=== PATIENT | female | born 1995 | race Caucasian/White ===

== ENCOUNTER → 2016-09-25 | Outpatient (CLI) | payer BC ==
--- NOTE | 2016-09-25 08:57 | NM ---
EXAMINATION TYPE: NM hepatobiliary w EF DATE OF EXAM: 09/25/2016 8:47 AM COMPARISON: NONE HISTORY: Right upper quadrant pain TECHNIQUE: After the intravenous administration of 5.3 mCi Tc 99m Mebrofenin hepatobiliary scintigrap hy is performed. Immediate images post injection. FINDINGS: There is satisfactory initial accumulation of tracer by the liver. The gallbladder is visualized wit hin 10 minutes. The small bowel activity is noted within 40 minutes. At one hour 8 ounces of oral e nsure plus is given to mimic CCK and gallbladder ejection fraction is calculated at 66 %, in the norm al range. Therefore there is no scintigraphic evidence of cystic or common bile duct obstruction to suggest acute cholecystitis or gallbladder dyskinesia. IMPRESSION: Exam is within normal limits.
== END | disposition home or self-care (01) ==
LOC: RADNMMAIN 06:50
PROVIDERS: ATTEND Surgery
DX: K82.8 Other specified diseases of gallbladder (principal)
CPT/HCPCS: 78226; A9537

== ENCOUNTER → 2016-10-07 | Outpatient (CLI) | payer BC ==
--- NOTE | 2016-10-07 15:01 | CT ---
EXAMINATION TYPE: CT abdomen pelvis w con DATE OF EXAM: 10/07/2016 2:38 PM COMPARISON: 06/19/2012 HISTORY: RUQ pain, nausea CT DLP: 357.0 mGycm CONTRAST: CT scan of the abdomen and pelvis is performed with Oral Contrast and with IV Contrast, patient injec dieter with 100 mL of Omnipaque 300. FINDINGS: LUNG BASES-: No visible nodule. No infiltrate. LIVER/GB: No calcified gallstones. No space occupying hepatic lesion. Biliary tree is of normal ca liber. PANCREAS: No inflammation. No distinct mass. SPLEEN: No splenic enlargement. No lesion seen. ADRENALS: No nodule. No thickening. KIDNEYS/BLADDER: No hydronephrosis. Nonobstructing 3 mm calculus mid to upper pole right kidney. No additional renal calculi seen at this time. No disctinct renal mass. Urinary bladder grossly unremark able. BOWEL: Normal appendix. Normal bowel caliber. No inflammation. GENITAL ORGANS: The uterus is unremarkable. Right ovarian cyst measuring 2.1 cm. Left ovary is withi n normal limits. No free fluid identified. LYMPH NODES: No greater than 1cm abdominal or pelvic lymph nodes are appreciated. AORTA: No significant abnormality. OSSEOUS STRUCTURES: No significant abnormality is seen. OTHER: No significant additional abnormality is seen. IMPRESSION: 1. Right ovarian cystic lesion. 2. Nonobstructing right renal calculus.
== END | disposition home or self-care (01) ==
LOC: RADCTMAIN 14:11
PROVIDERS: ATTEND Surgery
DX: N20.0 Calculus of kidney (principal); N83.201 Unspecified ovarian cyst, right side
CPT/HCPCS: 74177; Q9967

== ENCOUNTER 2016-10-23 06:46 | Day surgery (SDC) | payer BC ==
[2016-10-18 13:37] VITALS: BMI 18.3
[~2016-10-23 06:46] MED LIST: LACTATED RINGERS 1,000 ML IV SCH
[2016-10-23 07:19] VITALS: TEMP 97
[2016-10-23] MEDS ORDERED: LIDOCAINE 1% INJ 10MG/ML (20 ML MDV) ONE (07:33)
[2016-10-23] MEDS ORDERED: PROPOFOL 10 MG/ML 20 ML VIAL IV ONE (07:33)
--- NOTE | 2016-10-23 08:12 | P.OP ---
Date of Procedure: 10/23/16 Preoperative Diagnosis: weight loss, diarrhea, abdominal pain Postoperative Diagnosis: Large paraesophageal ulcer with esophagitis, mild gastritis and duodentitis Grossly normal colon Procedure(s) Performed: EGD with biopsy using cold biopsy forceps Colonoscopy with biopsy using cold biopsy forceps Anesthesia: CHAPARRITA Surgeon: Frantz Llanes Pathology: other Condition: stable Disposition: PACU Description of Procedure: PROCEDURE DETAILS: A timeout was performed to verify the correct patient and correct procedure. Patient was on continuous vitals and pulse ox monitoring throughout the procedure. She was placed in lateral decubitus position and a bite block was inserted. A well-lubricated endoscope was passed orally. The esophagus was intubated without difficulty. The EGD was passed beyond the pylorus into the first and second portion of the duodenum. Biopsies were taken from the duodenum , antrum , body, of stomach and GE junction using cold biopsy forceps. The scope was retroflexed. Large hiatal was noted which is Hill Vasiliy III. No mass , ulcer or bleeding noted within the gastric lumen. The GE junction is measured at 38 cm from the incisors . Mild reflux esophagitis. The endoscope was gradually withdrawn. No abnormality identified in the esophagus.Patient tolerated the procedure well and was taken to post anesthesia care unit in stable condition. After chagrin the patients position .Perianal examination did not reveal any external hemorrhoids. A well-lubricated endoscope was passed per rectally and was gradually advanced beyond the sigmoid colon, splenic flexure, transverse colon, hepatic flexure and cecum. The ileocecal valve was visualized. No diverticulosis noted . Scope was gradually withdrawn inspecting all the mucosal surfaces. No polyp was noted. Random biopsies were taken from the cecum and ascending colon transverse colon and descending colon sigmoid colon and rectum. Bowel prep was good. No other polyps or masses noted. Retroflexed in the rectum and no internal hemorrhoid was noted . The scope was gradually withdrawn. Patient tolerated the procedure well and was taken to post anesthesia care unit in stable condition.
[2016-10-23 08:16] VITALS: RESP 16
[2016-10-23 08:47] VITALS: BP 109/74; PULSE 63
== END 2016-10-23 09:05 | disposition home or self-care (01) ==
LOC: ORWHC2ENDO 06:46
PROVIDERS: ATTEND Surgery
DX: K29.70 Gastritis, unspecified, without bleeding (principal); K22.10 Ulcer of esophagus without bleeding; K21.0 Gastro-esophageal reflux disease with esophagitis; K29.80 Duodenitis without bleeding; R19.7 Diarrhea, unspecified; F17.200 Nicotine dependence, unspecified, uncomplicated; R63.4 Abnormal weight loss; Z79.899 Other long term (current) drug therapy
CPT/HCPCS: 81025; 88305; 88342; 45380; 43239; J2001; J2704; 93979

== ENCOUNTER → 2016-10-23 | Outpatient (CLI) | payer BC ==
--- NOTE | 2016-10-23 10:25 | US ---
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 EXAM MEASUREMENTS: Abdominal Aorta: Proximal: 1.7 x 1.7 cm Mid: 1.4 x 1.7 cm Distal: 1.3 x 1.6 cm Bifurcation: HIRAL: 0.8 x 1.1 cm HENRIETTA: 0.9 x 1.0 cm Aorta appeared wnl IMPRESSION: No evidence for abdominal aortic aneurysm. Mild atheromatous changes identified.
== END ==
LOC: RADUSWWP 09:59
PROVIDERS: ATTEND Surgery
DX: I77.4 Celiac artery compression syndrome (principal)
CPT/HCPCS: 93979

== ENCOUNTER → 2018-11-09 | Outpatient (CLI) | payer BC ==
[2018-11-09 10:57] LABS: Appearance,Urine Clear (Clear); Bilirubin,Urine Negative (Negative); Blood,Urine Negative (Negative); Color,Urine Colorless; Glucose,Urine (UA) Negative (Negative); Ketones,Urine Negative (Negative); Leukocyte Esterase,Urine Negative (Negative); Nitrite,Urine Negative (Negative); Protein,Urine Negative (Negative); Specific Gravity,Urine 1.001 (1.001-1.035); Urobilinogen,Urine <2.0 mg/dL (<2.0)
[2018-11-09 11:01] LABS: MCHC 31.8 g/dL (31.0-37.0); MCV 94.4 fL (80.0-100.0); Platelet Count 235 k/uL (150-450); RBC 4.34 m/uL (3.80-5.40); RDW 12.9 % (11.5-15.5); WBC 6.1 k/uL (3.8-10.6)
[2018-11-09 17:43] LABS: Albumin 4.7 g/dL (3.80-4.90); Albumin/Globulin Ratio 2.47 (1.60-3.17); Anion Gap 7.8 mmol/L (4.00-12.00); Calcium 9.6 mg/dL (8.7-10.3); Carbon Dioxide 23.2 mmol/L (21.6-31.8); Globulin 1.9 g/dL (1.6-3.3); Magnesium 1.7 mg/dL (1.5-2.4); Phosphorus 2.5 mg/dL (2.4-5.1); Potassium 3.8 mmol/L (3.5-5.5); Total Bilirubin 0.7 mg/dL (0.3-1.2); Total Protein 6.6 g/dL (6.2-8.2); Uric Acid 4.3 mg/dL (2.9-7.7)
== END | disposition home or self-care (01) ==
LOC: LABWHC1 10:00
PROVIDERS: ATTEND Internal Medicine
DX: E55.9 Vitamin D deficiency, unspecified (principal); N39.0 Urinary tract infection, site not specified; D64.9 Anemia, unspecified; M10.9 Gout, unspecified; N17.9 Acute kidney failure, unspecified
CPT/HCPCS: 36415; 80053; 81003; 82306; 83735; 84100; 84550; 85027

== ENCOUNTER → 2022-05-31 | Outpatient (CLI) | payer OTHER ==
--- NOTE | 2022-05-31 15:32 | US ---
EXAMINATION TYPE: US transvaginal DATE OF EXAM: 05/31/2022 COMPARISON: CT CLINICAL HISTORY: R10.2 PELVIC AND PERINEAL PAIN. Pt states pelvic pain, more on right side TECHNIQUE: Transvaginal (TV). Transvaginal sonographic images of the pelvis were acquired. Date of LMP: 3 weeks ago EXAM MEASUREMENTS: Uterus: 6.7 x 3.5 x 4.2 cm Endometrial Stripe: 0.5 cm Right Ovary: 5.4 x 5.3 x 3.1 cm Left Ovary: 3.0 x 2.3 x 1.4 cm 1. Uterus: Retroverted wnl 2. Endometrium: wnl 3. Right Ovary: Simple cyst= 5.0 x 2.7 x 4.3 cm 4. Left Ovary: wnl, follicles 5. Bilateral Adnexa: wnl 6. Posterior cul-de-sac: Scant amount of free fluid IMPRESSION: 1. Large cyst right ovary. 2. Tiny amount of free fluid within the cul-de-sac.
== END | disposition home or self-care (01) ==
LOC: RADUSWWP 14:26
PROVIDERS: ATTEND Obstetrics & Gynecology
DX: N83.202 Unspecified ovarian cyst, left side (principal)
CPT/HCPCS: 76830

== ENCOUNTER → 2025-01-29 | Outpatient (CLI) | payer BC ==
--- NOTE | 2025-01-30 12:21 | MR ---
EXAMINATION TYPE: MR pelvis wo/w con DATE OF EXAM: 01/29/2025 2:42 PM COMPARISON: CT 09/09/2016. 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 Lateral femoral cutaneous pelvic pain. TECHNIQUE: Triplane multisequence imaging was performed of the pelvis. IV Contrast: 7.5 mL Gadobutrol FINDINGS: Reproductive: Vagina: Unremarkable. Uterus: The uterus is anteverted in position. Uterus is retroverted and measures 5.6 x 2.9 x 2.8 cm. The endometrium and junctional zone are within normal limits. Ovaries: Follicular changes are noted to the ovaries. The left ovary measures 2.1 x 1.6 x 1.5 cm. Rig ht ovary measures 2.7 x 1.1 x 1.2 cm. Bladder: Unremarkable. Bowel: Unremarkable as visualized. Peritoneum: No free fluid or adenopathy. Lymph nodes: No evidence of adenopathy. Vasculature: Unremarkable. Musculoskeletal: Bone marrow signal is within normal signal intensity. Symmetrical course of the late ral femoral cutaneous nerve's. Abdominal wall/soft tissues: Unremarkable. IMPRESSION: 1. No evidence for mass or acute process. 2. Retroverted uterus. [facility], , 01/30/2025 12:19 PM
== END | disposition home or self-care (01) ==
LOC: RADMRIMAIN 13:37
PROVIDERS: ATTEND Psychiatry & Neurology Neurology
DX: N85.4 Malposition of uterus (principal)
CPT/HCPCS: 72197; A9585